=== PATIENT | male | born 1980 | race African-American/Black ===

== ENCOUNTER 2022-08-08 18:25 | Emergency (ER) | payer MEDICAID, OTHER ==
[~2022-08-08] VITALS: Ht 182.9 cm; Wt 100.0 kg
[2022-08-08] MEDS ORDERED: HYDROCODONE/ACETAMINOPHEN 5/325MG TABLET PO ONE (20:15)
[2022-08-08] MEDS ORDERED: LIDO700A30 TP (21:59)
[2022-08-08] MEDS ORDERED: IBUP-2029 MT (21:59)
[2022-08-08 22:15] VITALS: BP 148/92
== END 2022-08-08 22:19 | disposition home or self-care (01) ==
LOC: ER 18:25
DX: M54.2 Cervicalgia (principal); M25.512 Pain in left shoulder; M50.20 Other cervical disc displacement, unspecified cervical region; R51.9 Headache, unspecified; V43.52XA Car driver injured in collision with other type car in traffic accident, initial encounter; Y93.89 Activity, other specified; Y92.488 Other paved roadways as the place of occurrence of the external cause
CPT/HCPCS: 71045; 73030; 99284